=== PATIENT | female | born 1980 | race Caucasian/White ===

== ENCOUNTER → 2016-10-04 | Outpatient (CLI) | payer BC ==
[~2016-10-04] MED LIST: MULT-506 PO; PRENTAB26 PO
--- NOTE | 2016-10-05 12:59 | MAMMOGRAPHY REPORT ---
BILATERAL DIGITAL SCREENING MAMMOGRAM TOMOSYNTHESIS WITH CAD: 10/04/2016 CLINICAL HISTORY: Routine screening. Patient has no complaints. TECHNIQUE: Breast tomosynthesis in addition to standard 2D mammography was performed. Current study was also evaluated with a Computer Aided Detection (CAD) system. COMPARISON: Comparison is made to exams dated: 06/20/2013 mammogram - [facility] an d 12/27/2006. BREAST COMPOSITION: The tissue of both breasts is heterogeneously dense, which may obscure small ma sses. FINDINGS: No suspicious mass, architectural distortion or cluster of microcalcifications is seen. IMPRESSION: ACR BI-RADS CATEGORY 1: NEGATIVE There is no mammographic evidence of malignancy. A 3 year screening mammogram is recommended. The p atient will receive written notification of the results. Approximately 10% of breast cancers are not detected with mammography. A negative mammographic repor t should not delay biopsy if a clinically suggestive mass is present. Silvia Hull M.D. ay/penrad:10/04/2016 17:47:24 Systems Development Manager: Leila ARREOLA(R)(Daniele)(BD), [facility] letter sent: Normal 1/2 BI-RADS Code: ACR BI-RADS Category 1: Negative
== END | disposition home or self-care (01) ==
LOC: C.MAMM 12:09
PROVIDERS: ATTEND Obstetrics & Gynecology
DX: Z12.31 Encounter for screening mammogram for malignant neoplasm of breast (principal)

== ENCOUNTER 2016-12-25 13:51 | Emergency (ER) | payer BC ==
[~2016-12-25] VITALS: Ht 160 cm; Wt 67.6 kg
[~2016-12-25 13:51] MED LIST changes: -MULT-506 PO
[2016-12-25 13:56] VITALS: BP 126/87; PULSE 85; TEMP 36.9; O2SAT 96; Ht 160 cm; Wt 67.6 kg
[2016-12-25] MEDS ORDERED: RABIES VACCINE (IMOVAX) HUMAN DIPL CELL 2.5 INTER.UNIT/ML SYR IM. ONE (14:15)
--- NOTE | 2016-12-25 14:20 | EMERGENCY ROOM VISIT NOTE ---
History First contact with patient: 14:01 Chief Complaint: RABIES VACCINE Stated Complaint: BAT EXPOSURE History of Present Illness The patient is a 36 year old female who presents to the Emergency Room for a rabies prophylaxis immunization series. The patient and son were awakened this morning with a bat flying around in the room. The family was alerted by their barking dog. They were able to chased the bat out of the house. There was no known contact with the bat, but because the family was awakened with a bat in the room, animal control suggested that they come to the emergency department for further evaluation. 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 This was approximately 7-8 years ago. Review of Systems 6 system review was performed and was negative except for pertinent positives and negatives as indicated in history of present illness Past Medical/Surgical History Medical Problems: (1) Ovarian Cyst Nec/Nos Surgical Problems: (1) No history of previous surgery Family History Unremarkable Social History Smoking Status: Never Smoker Alcohol Use: occasionally Marital Status: Housing Status: lives with family Occupation Status: employed Current/Historical Medications Scheduled Multivit/Min/Iron/Fol Ac/Pren ( Vitamin), 1 TAB PO DAILY Allergies Coded Allergies: Tramadol (Verified Allergy, Intermediate, SHORTNESS OF BREATH, 06/22/14) Physical Exam Vital Signs Date Time Temp Pulse Resp B/P (MAP) Pulse Ox O2 Delivery O2 Flow Rate FiO2 12/25/16 13:56 36.9 85 16 126/87 96 Room Air Physical Exam CONSTITUTIONAL: Healthy and well nourished. HEENT: Normocephalic, atraumatic. Pupils equal, round and reactive. INTEGUMENTARY: No rash or other significant dermatologic conditions noted. NEUROLOGIC: No focal neurologic deficits noted. Medical Decision & Procedures ED Course Patient history and physical exam were performed. Nurse's notes were reviewed. Vital signs were reviewed and normal. The patient was administered Imovax IM. She will return on day 3 for her final Imovax injection. She was instructed to return sooner for any adverse reactions to the Imovax. The patient was happy with plan of care, and denied any pain at the time of discharge. Medical Decision Impression Primary Impression: Need for prophylactic vaccination against rabies Departure Information Dispostion Home / Self-Care Referrals No Doctor, Assigned Forms HOME CARE DOCUMENTATION FORM, IMPORTANT VISIT INFORMATION Patient Instructions My [facility] Additional Instructions Return on Monday for your final Imovax immunization
[2016-12-28] MEDS ORDERED: MULT-506 PO (14:19)
== END 2016-12-25 15:22 | disposition home or self-care (01) ==
LOC: C.EDB 13:53 → C.EDD 15:22
DX: Z20.3 Contact with and (suspected) exposure to rabies (principal); Z23 Encounter for immunization

== ENCOUNTER 2016-12-28 15:39 | Emergency (ER) | payer BC ==
[~2016-12-28] VITALS: Ht 160 cm; Wt 67.2 kg
[~2016-12-28 15:39] MED LIST changes: +MULT-506 PO; -PRENTAB26 PO
[2016-12-28 15:45] VITALS: BP 136/89; PULSE 79; TEMP 36.8; O2SAT 95; Ht 160 cm; Wt 67.2 kg
--- NOTE | 2016-12-28 15:55 | EMERGENCY ROOM VISIT NOTE ---
ED Visit Note First contact with patient: 15:47 CHIEF COMPLAINT: Rabies prophylaxis HISTORY OF PRESENT ILLNESS: This 36-year-old female patient presents to the emergency department ambulatory for their second and final rabies shot. The patient has already had the preexposure prophylaxis. The patient has not had any complications from the previous injections. They deny any other complaints. REVIEW OF SYSTEMS: A 6 system review of systems was completed with positives and pertinent negatives listed in the HPI. ALLERGIES: Tramadol MEDICATIONS: Unchanged from previous PMH: Unchanged from previous visit. PHYSICAL EXAM: Vital Signs: Reviewed Nurse's notes, vital signs stable. GENERAL : This is a 36-year-old female, in no acute distress, well-developed, well- nourished. HEAD: Atraumatic, without temporal or scalp tenderness. EYES: PERRLA, EOMI, no discharge or injection. SKIN: Normal. NEUROLOGICAL: Alert and cooperative. Sensory and motor functions grossly intact. EMERGENCY DEPARTMENT COURSE: I examined the patient. The patient was given Imovax 1ml IM. The patient was observed for 20 minutes with no reaction. The patient was discharged home in stable condition. DIAGNOSIS: Rabies prophylaxis DISCHARGE INSTRUCTIONS: Continue vaccination schedule as directed. Return for any complications. Current/Historical Medications Scheduled Multivitamin (Multivitamin), 1 TAB PO DAILY Allergies Coded Allergies: Tramadol (Verified Allergy, Intermediate, SHORTNESS OF BREATH, 12/25/16) Vital Signs Date Time Temp Pulse Resp B/P (MAP) Pulse Ox O2 Delivery O2 Flow Rate FiO2 12/28/16 15:45 36.8 79 18 136/89 95 Room Air Medications Administered Medications (Trade) Dose Ordered Sig/Rain Route Start Time Stop Time Status Last Admin Dose Admin Rabies Vaccine Human Diploid Cell (Imovax Rabies) 2.5 interunit ONCE ONCE IM. 12/28/16 16:00 12/28/16 16:01 DC 12/28/16 16:00 2.5 INTERUNIT Departure Information Impression Primary Impression: Need for rabies vaccination Dispostion Home / Self-Care Condition GOOD Referrals Zenon Montalvo M.D. (PCP) Patient Instructions My [facility] Additional Instructions Continue vaccination schedule as directed. Return for any complications.
[2016-12-28] MEDS ORDERED: RABIES VACCINE (IMOVAX) HUMAN DIPL CELL 2.5 INTER.UNIT/ML SYR IM. ONE (16:00)
== END 2016-12-28 16:29 | disposition home or self-care (01) ==
LOC: C.EDB 15:40 → C.EDD 16:29
DX: Z23 Encounter for immunization (principal); Z20.3 Contact with and (suspected) exposure to rabies

== ENCOUNTER 2022-12-08 12:00 | Inpatient (IN) ==
[2022-12-08] MEDS ORDERED: SODIUM CHLORIDE 0.9% 500 ML IV STA (12:12)
[2022-12-08] MEDS ORDERED: ONDANSETRON INJ 2 MG/ML 2 ML VIAL IV STA ×2 (12:12→14:41)
[2022-12-08 14:18] LABS: Albumin Globulin Ratio 1.8 (0.9-2); Albumin Level 4.9 gm/dl (3.4-5.0); BUN Creatinine Ratio 7.1 (10-20); Bilirubin,Total 0.6 mg/dl (0.2-1.0); Calcium 9.8 mg/dl (8.6-10.3); Creatinine Clr Calc Pharmacy 96.6 ml/min; Est GFR (Non-African American) 106.1 ml/min; Globulin 2.7 gm/dl (2.5-4.0); Potassium 4.1 mmol/L (3.5-5.1); Pregnancy Test, Serum Negative (Negative); Total Protein 7.6 gm/dl (6.0-8.3)
[2022-12-08] MEDS ORDERED: SODIUM CHLORIDE 0.9% 1000ML 2,000 ML IV ONE (14:36)
[2022-12-08] MEDS ORDERED: METOCLOPRAMIDE HCL INJ 5 MG/ML 2 ML VIAL IV STA (14:36)
--- NOTE | 2022-12-08 14:41 | Emergency Department Note ---
Impression & Plan SBO (small bowel obstruction), Abdominal pain ED Provider Note NAME: EPHRAIM DELEON AGE: 42 SEX: F : 1980 ARRIVES VIA: Walk-In INFORMANT: Patient ED PROVIDER(S): Stephen So DO CHIEF COMPLAINT: Abdominal pain HPI: Patient is a 42-year-old female with a past medical history with previous surgery to evaluate for endometriosis. They found nothing but when they went into her belly they did notice adhesions. This was when she was 18. She notes symptoms started on Monday. Has not been feeling well. Upset stomach. She went to her PCP as she started having pain periumbilically and epigastric. She had a CT performed which showed a small bowel obstruction. was negative. She denies any headache or change in vision. No chest pain or shortness of breath. No dysuria, urgency, or frequency. No other exacerbating or remitting factors. PAST MEDICAL HISTORY:See Below PAST SURGICAL HISTORY:See Below FAMILY HISTORY:See Below SOCIAL HISTORY:See Below HOME MEDICATIONS:See Below ALLERGIES:See Below VITALS:See Below PHYSICAL EXAMINATION: GENERAL: Sitting up in bed, alert, well appearing, well nourished, no distress, non-toxic EYE EXAM: normal conjunctiva. OROPHARYNX: mucous membranes are moist LUNGS: Clear to auscultation. Normal chest wall mechanics HEART: no murmurs, S1 normal and S2 normal ABDOMEN: abdomen soft, ttp periumbilically, normo-active bowel sounds, no ma sses, no rebound or guarding. BACK: Back is symmetrical on inspection and there is no deformity, no midline tenderness, no CVA tenderness. SKIN: no rashes and no bruising UPPER EXTREMITIES: upper extremities are grossly normal. LOWER EXTREMITIES: No pitting edema. NEURO EXAM: Normal sensorium, cranial nerves II-XII grossly intact, normal speech, no gross weakness of arms, no gross weakness of legs. MEDICAL DECISION MAKING: Patient is a 42-year-old female who presents ER for abdominal pain. IV was established blood work was obtained. External records reviewed which showed a bowel obstruction. Patient presents to the ER and labs show no significant leukocytosis or anemia. BMP with LFTs bilirubin lipase and hCG was negative. She was given IV fluids and IV morphine. Updated bedside. Discussed with hospitalist admitted for small bowel obstruction on CT. discussed with the hospitalist for further evaluation management and treatment. Also discussed with care managers for admission and further work-up Triage Nursing notes reviewed. Limited review of prior medical records performed Vital Signs: reviewed and remarkable for no significant abnormalities Differential diagnosis: Differential diagnoses includes but is not limited to gastritis, peptic ulcer disease, GERD, gallbladder disease, pancreatitis, small bowel obstruction, appendicitis, diverticulitis, hernia, urinary tract infection, torsion, [/ectopic (if female)], perforation, trauma, infectious. ER treatment provided: See below Diagnostics interpreted by me include EKG and cardiac monitoring as listed below: -Cardiac Monitoring: An order was placed for continuous cardiac monitoring. The monitor shows a rate of 70 with sinus rhythm. -ECG: none -Laboratory studies:Interpreted by me as stated above in MDM and shown below. 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 Surgical History 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 S/P dilation and curettage S/P laparoscopy S/P tonsillectomy S/P tooth extraction wisdom teeth Family History Grandmother (Maternal) Heart disease Breast cancer Thyroid disorder Grandfather (Maternal) Diabetes Family/Other Family history of malignant hyperthermia First cousin Other Abdominal migraine Gallbladder disease History of IVP Hypertension Osteoporosis Pure hypercholesterolemia Varicella Social History Smoking Status: Former smoker Second Hand Exposure: No; Do You Dip or Chew Tobacco: No; Hx Alcohol Use: No Hx Substance Use: No Preferred Language: German Communication Ability: Effective Head Of Precision Targeting Required: No Beliefs That Will Affect Care: None Current Living Situation: Family Current Living Situation Comment: and 2 kids Feels Safe at Home: Yes Assistive Devices: Contacts and Glasses Allergies Allergies Allergy/AdvReac Type Severity Reaction Status Date / Time tramadol Allergy Severe SHORTNESS Verified 12/08/22 16:07 OF BREATH Home Meds Home Medications Medication Instructions Recorded Confirmed levonorgestrel 21 mcg/24 hours (8 20 mcg intrauterine DAILY 02/13/19 12/08/22 yrs) 52 mg intrauterine device fluticasone propionate 50 2 spray intranasal BID PRN Nasal 12/08/22 12/08/22 mcg/actuation nasal Congestion spray,suspension sumatriptan succinate 50 mg tablet 0 mg PO .COMPLEX 12/08/22 12/08/22 (Imitrex) Previous Rx's Medication Instructions Recorded norethindrone (contraceptive) 0.35 0.35 mg PO DAILY #28 tabs 11/17/22 mg tablet (Bina) Results & Data (ED) Vital Signs Vital Signs - 24 hr 12/08/22 12:05 12/08/22 14:34 12/08/22 15:00 Temperature 36.5 C Temperature Source Temporal Artery Scan Pulse Rate 77 72 Pulse Rate [Apical] 64 Pulse Rhythm Regular Pulse Strength Normal Respiratory Rate 18 14 Respiratory Effort / Characteristics Non-Labored Spontaneous Respiratory Depth Normal Respiratory Pattern Regular Blood Pressure 151/92 H Blood Pressure [Right Arm] 147/89 H Blood Pressure Mean 111 Blood Pressure Mean [Right Arm] 108 Blood Pressure Position Sitting Pulse Oximetry 100 100 Oxygen Delivery Method Room Air Room Air Sepsis Recent Fever Within 48 Hours No Sepsis New/Unexplained Change in Mental Status No Sepsis Action Taken by Nursing No Action Required Laboratory Data 12/08/22 14:33 12/08/22 13:34 Lab Results 12/08/22 12/08/22 12/08/22 Range/Units 13:34 13:34 13:34 WBC Cancelled RBC Cancelled Hgb Cancelled Hct Cancelled MCV Cancelled MCH Cancelled MCHC Cancelled RDW Std Deviation Cancelled RDW Coeff of Rosey Cancelled Plt Count Cancelled MPV Cancelled Immature Gran % (Auto) Cancelled Neut % (Auto) Cancelled Lymph % (Auto) Cancelled [place] % (Auto) Cancelled Eos % (Auto) Cancelled Baso % (Auto) Cancelled Neut # (Auto) Cancelled Lymph # (Auto) Cancelled [place] # (Auto) Cancelled Eos # (Auto) Cancelled Baso # (Auto) Cancelled Immature Gran # (Auto) Cancelled Absolute Nucleated RBC Cancelled Nucleated RBC % (auto) Cancelled Neutrophils % (Manual) Cancelled Band Neutrophils % Cancelled Lymphocytes % (Manual) Cancelled Prolymphocyte % Cancelled Reactive Lymphs % (Man) Cancelled Monocytes % (Manual) Cancelled Eosinophils % (Manual) Cancelled Basophils % (Manual) Cancelled Metamyelocytes % (Man) Cancelled Myelocytes % (Man) Cancelled Promyelocytes % (Man) Cancelled Blast Cells % (Manual) Cancelled Plasma Cell % (Manual) Cancelled Other Cells % Cancelled Nucleated RBC % Cancelled Neutrophils # (Manual) Cancelled Band Neutrophils # Cancelled Total Absolute Neuts Cancelled Lymphocytes # (Manual) Cancelled Prolymphocyte # Cancelled Reactive Lymphs # Cancelled Total Abs Lymphocytes Cancelled Monocytes # (Manual) Cancelled Eosinophils # (Manual) Cancelled Basophils # (Manual) Cancelled Metamyelocytes # (Man) Cancelled Myelocytes # (Manual) Cancelled Promyelocytes # (Man) Cancelled Blast Cells # (Man) Cancelled Plasma Cell # (Manual) Cancelled Other Cells # Cancelled Nucleated RBCs # (Man) Cancelled Hypersegmented Neuts Cancelled Hyposegmented Neuts Cancelled Hypogranular Neuts Cancelled Large Granular Lymphs Cancelled # Lrg Granular Lymphs Cancelled Hairy Cells Cancelled Smudge Cells Cancelled Toxic Granulation Cancelled Toxic Vacuolation Cancelled Dohle Bodies Cancelled Kelley Rods Cancelled Platelet Estimate Cancelled Hypogranular Platelets Cancelled Giant Platelets Cancelled Platelet Satelliting Cancelled RBC Morphology Cancelled Polychromasia Cancelled Hypochromasia Cancelled Poikilocytosis Cancelled Basophilic Stippling Cancelled Anisocytosis Cancelled Microcytosis Cancelled Macrocytosis Cancelled Spherocytes Cancelled Pappenheimer Bodies Cancelled Sickle Cells Cancelled Target Cells Cancelled Tear Drop Cells Cancelled Ovalocytes Cancelled Stomatocytes Cancelled [place] Bodies Cancelled Echinocytes Cancelled Acanthocytes (Spur) Cancelled Rouleaux Cancelled RBC Agglutinates Cancelled Schistocytes Cancelled Sezary Cell Cancelled Sodium 138 (136-145) mmol/L Potassium 4.1 (3.5-5.1) mmol/L Chloride 106 (98-107) mmol/L Carbon Dioxide 26 (21-32) mmol/L Anion Gap 6 (3-11) BUN 5 L (6-23) mg/dl Creatinine 0.70 (0.6-1.2) mg/dl Est Cr Clr Drug Dosing 96.6 ml/min Est GFR ( Amer) 123.0 ml/min Est GFR (Non-Af Amer) 106.1 ml/min BUN/Creatinine Ratio 7.1 L (10-20) Glucose 88 (70-99(Fasting)) mg/dl Calcium 9.8 (8.6-10.3) mg/dl Total Bilirubin 0.6 (0.2-1.0) mg/dl AST 17 (13-39) U/L ALT 16 (7-52) U/L Alkaline Phosphatase 56 (34-104) U/L Total Protein 7.6 (6.0-8.3) gm/dl Albumin 4.9 (3.4-5.0) gm/dl Globulin 2.7 (2.5-4.0) gm/dl Albumin/Globulin Ratio 1.8 (0.9-2) Lipase 20 (11-82) U/L HCG, Qual Negative (Negative) Blood Parasites ID Cancelled 12/08/22 Range/Units 14:33 WBC 6.52 RBC 4.81 Hgb 14.4 Hct 42.8 MCV 89.0 MCH 29.9 MCHC 33.6 RDW Std Deviation 40.5 RDW Coeff of Rosey 12.5 Plt Count 213 MPV 11.3 Immature Gran % (Auto) 0.2 Neut % (Auto) 64.4 Lymph % (Auto) 28.5 [place] % (Auto) 6.1 Eos % (Auto) 0.5 Baso % (Auto) 0.3 Neut # (Auto) 4.20 Lymph # (Auto) 1.86 [place] # (Auto) 0.40 Eos # (Auto) 0.03 Baso # (Auto) 0.02 Immature Gran # (Auto) 0.01 Absolute Nucleated RBC Nucleated RBC % (auto) Neutrophils % (Manual) Band Neutrophils % Lymphocytes % (Manual) Prolymphocyte % Reactive Lymphs % (Man) Monocytes % (Manual) Eosinophils % (Manual) Basophils % (Manual) Metamyelocytes % (Man) Myelocytes % (Man) Promyelocytes % (Man) Blast Cells % (Manual) Plasma Cell % (Manual) Other Cells % Nucleated RBC % Neutrophils # (Manual) Band Neutrophils # Total Absolute Neuts Lymphocytes # (Manual) Prolymphocyte # Reactive Lymphs # Total Abs Lymphocytes Monocytes # (Manual) Eosinophils # (Manual) Basophils # (Manual) Metamyelocytes # (Man) Myelocytes # (Manual) Promyelocytes # (Man) Blast Cells # (Man) Plasma Cell # (Manual) Other Cells # Nucleated RBCs # (Man) Hypersegmented Neuts Hyposegmented Neuts Hypogranular Neuts Large Granular Lymphs # Lrg Granular Lymphs Hairy Cells Smudge Cells Toxic Granulation Toxic Vacuolation Dohle Bodies Kelley Rods Platelet Estimate Hypogranular Platelets Giant Platelets Platelet Satelliting RBC Morphology Polychromasia Hypochromasia Poikilocytosis Basophilic Stippling Anisocytosis Microcytosis Macrocytosis Spherocytes Pappenheimer Bodies Sickle Cells Target Cells Tear Drop Cells Ovalocytes Stomatocytes [place] Bodies Echinocytes Acanthocytes (Spur) Rouleaux RBC Agglutinates Schistocytes Sezary Cell Sodium (136-145) mmol/L Potassium (3.5-5.1) mmol/L Chloride (98-107) mmol/L Carbon Dioxide (21-32) mmol/L Anion Gap (3-11) BUN (6-23) mg/dl Creatinine (0.6-1.2) mg/dl Est Cr Clr Drug Dosing ml/min Est GFR ( Amer) ml/min Est GFR (Non-Af Amer) ml/min BUN/Creatinine Ratio (10-20) Glucose (70-99(Fasting)) mg/dl Calcium (8.6-10.3) mg/dl Total Bilirubin (0.2-1.0) mg/dl AST (13-39) U/L ALT (7-52) U/L Alkaline Phosphatase (34-104) U/L Total Protein (6.0-8.3) gm/dl Albumin (3.4-5.0) gm/dl Globulin (2.5-4.0) gm/dl Albumin/Globulin Ratio (0.9-2) Lipase (11-82) U/L HCG, Qual (Negative) Blood Parasites ID Administered Medications Discontinued Medications Sodium Chloride (Nss) 500 mls @ 999 mls/hr IV .Q31M STA Stop: 12/08/22 12:42 Last Infusion: 12/08/22 15:26 Dose: 0 mls/hr Documented By: Admin: 12/08/22 14:30 Dose: 999 mls/hr Documented By: HS Sodium Chloride (Nss 1000ml) 2,000 mls @ 999 mls/hr IV .Q2H1M ONE Stop: 12/08/22 16:36 Last Admin: 12/08/22 15:26 Dose: 999 mls/hr Documented By: ROLANDO Metoclopramide HCl (Metoclopramide Hcl Inj 5 Mg/Ml 2 Ml Vial) 10 mg IV NOW STA Stop: 12/08/22 14:37 Last Admin: 12/08/22 14:52 Dose: Not Given Documented By: MADONNA Ondansetron HCl (Ondansetron Inj 2 Mg/Ml 2 Ml Vial) 4 mg IV NOW STA Stop: 12/08/22 12:13 Last Admin: 12/08/22 13:31 Dose: 4 mg Documented By: SE Ondansetron HCl (Ondansetron Inj 2 Mg/Ml 2 Ml Vial) 4 mg IV NOW STA Stop: 12/08/22 14:42 Last Admin: 12/08/22 14:52 Dose: 4 mg Documented By: MADONNA Discharge Plan Visit Data Chief Complaint: GI Assessment Stated Complaint: BOWEL OBSTRUCTION ED Provider: Stephen So Discharge Problem: SBO (small bowel obstruction), Abdominal pain Patient Disposition: Admitted As Inpatient Discharge Instructions Interventions: ED Discharge Assessment Last Done: 12/08/22 17:04
[2022-12-08 14:49] LABS: Basophils # (auto) 0.02 K/uL (0-0.2); Basophils % (auto) 0.3 %; Eosinophils # (auto) 0.03 K/uL (0-0.50); Eosinophils % (auto) 0.5 %; Hematocrit (blood only) 42.8 % (37.0-47.0); Hemoglobin 14.4 g/dl (12.0-16.0); Immature Granulocytes # (auto) 0.01 K/uL (0.01-0.20); Immature Granulocytes % (auto) 0.2 %; Lymphocytes # (auto) 1.86 K/uL (1.2-3.4); Lymphocytes % (auto) 28.5 %; Mean Corpuscular Hemoglobin 29.9 pg (25.0-34.0); Mean Corpuscular Hgb Conc 33.6 g/dL (32.0-36.0); Mean Platelet Volume 11.3 fL (9.4-12.4); Monocytes % (auto) 6.1 %; Neutrophils % (auto) 64.4 %; Platelet Count 213 K/uL (130-400); RDW Coefficient of Variation 12.5 % (11.5-14.5); RDW Standard Deviation 40.5 fL (36.4-46.3); Red Blood Count 4.81 M/uL (4.20-5.40); White Blood Count 6.52 K/ul (4.8-10.8)
--- NOTE | 2022-12-08 15:50 | History & Physical Report ---
Date of Service December 08, 2022 Assessment & Plan (1) SBO (small bowel obstruction): Plan: NPO, IV fluids Ondansetron for nausea Acetaminophen 1st line, morphine 2nd line for pain Consult surgery Plan VTE Prophylaxis - low risk Diet - NPO Disposition - admit to med/surg Admission and Anticipated Discharge Date Admission Date: December 08, 2022 History of Present Illness Chief Complaint: Abdominal pain, nausea Primary Care Provider: Carmen Miller DO Shayy Fernandez is a 42 year old female who presents to the ER with abdominal pain and nausea. Initial symptom of nausea started 2 days ago with nausea, however she was able to eat and drink normally throughout the day. Last night however she kept waking up with progressively worsening waves of pain. Severity at worst 7/10. Each wave lasting for around 5 minutes. Characteristic as dull ache. She had a normal bowel movement this morning without melena or hematochezia. No prior episodes of small bowel obstruction although she had an exporative laparoscopy aged 18 for possible endometriosis but only adhesions were seen. Allergies Allergy/AdvReac Type Severity Reaction Status Date / Time tramadol Allergy Severe SHORTNESS Verified 12/08/22 16:07 OF BREATH Home Medications Medication Instructions Recorded Confirmed Type levonorgestrel 21 mcg/24 hours (8 20 mcg intrauterine DAILY 02/13/19 12/08/22 History yrs) 52 mg intrauterine device norethindrone (contraceptive) 0.35 0.35 mg PO DAILY #28 tabs 11/17/22 12/08/22 Rx mg tablet (Bina) fluticasone propionate 50 2 spray intranasal BID PRN Nasal 12/08/22 12/08/22 History mcg/actuation nasal Congestion spray,suspension sumatriptan succinate 50 mg tablet 0 mg PO .COMPLEX 12/08/22 12/08/22 History (Imitrex) Past Med/Surg History Medical History Encounter for IUD removal and reinsertion H/O varicella History of COVID-19 10/2021 - congestion, cough - resolved Missed Mitral 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 Surgical History 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 S/P dilation and curettage S/P laparoscopy S/P tonsillectomy S/P tooth extraction wisdom teeth Family History Grandmother (Maternal) Heart disease Breast cancer Thyroid disorder Grandfather (Maternal) Diabetes Family/Other Family history of malignant hyperthermia First cousin Other Abdominal migraine Gallbladder disease History of IVP Hypertension Osteoporosis Pure hypercholesterolemia Varicella Social History Smoking Status: Never smoker Second Hand Exposure: No; Do You Dip or Chew Tobacco: No; Tobacco Cessation Education Requested by Patient: No Hx Alcohol Use: No Hx Substance Use: No Preferred Language: Mongolian Communication Ability: Effective 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: No Beliefs That Will Affect Care: None Current Living Situation: Family Current Living Situation Comment: and two kids Feels Safe at Home: Yes Safety Concerns: Feels Safe At This Time Assistive Devices: Glasses Review of Systems Review of Systems: All systems reviewed & are unremarkable except as noted in HPI & below Physical Exam Constitutional: WD/WN, vitals as above ENMT: external ear and nose normal, oropharynx normal Respiratory: normal respiratory effort, lungs clear to auscultation Cardiovascular: RRR, no murmur, no edema Gastrointestinal (Abdomen): Inspection/Auscultation: abdomen normal to inspection; abdomen not distended Percussion/Palpation: + abdomen tender (left side of abdomen) and abdomen soft; no guarding and abdomen not rigid Musculoskeletal: no cyanosis or clubbing, extremities motor strength 5/5 Skin: no rashes, warm and dry Neurologic: moves all extremities and awake; not confused Psychiatric: A+Ox3, euthymic affect Results & Data Results & Data Vital Signs (Past 12 Hours) Vital Signs Temp Pulse Pulse Resp BP BP Pulse Ox 12/08/22 15:00 64 14 147/89 H 100 12/08/22 14:34 72 12/08/22 12:05 36.5 C 77 18 151/92 H 100 O2 Del Method 12/08/22 15:00 Room Air 12/08/22 14:34 12/08/22 12:05 Room Air Laboratory Results Abnormal lab results 12/08/22 Range/Units 13:34 BUN 5 L (6-23) mg/dl BUN/Creatinine Ratio 7.1 L (10-20) Diagnostic Findings ABDOMEN AND PELVIS CT WITHOUT CONTRAST CT DOSE: 847.09 mGy.cm HISTORY: Mid abdominal pain. Cramping. ABDOMINAL PAIN ASSESS GALLBLADDER/APPENDIX TECHNIQUE: Multiaxial CT images of the abdomen and pelvis were performed without contrast. A dose lowering technique was utilized adhering to the principles of ALARA. COMPARISON STUDY: Abdomen and pelvis CT 11/06/2017. FINDINGS: The lung bases are clear. No pneumoperitoneum. No pneumatosis. No acute fractures identified. The unenhanced liver, gallbladder, spleen, pancreas, and adrenal glands are unremarkable. A 3 mm fat-containing lesion within the right kidney remains stable. This is consistent with an angiomyolipoma. There are few punctate bilateral renal calculi measuring up to 3 mm. No ureteral calculi. No hydronephrosis. No retroperitoneal or mesenteric lymphadenopathy. No pelvic lymphadenopathy. Trace pelvic free fluid. The bladder is unremarkable. An intrauterine device appears in good position. The ovaries are within normal limits. Suboptimal evaluation for bowel pathology due to the lack of intravenous and oral contrast. The stomach is mildly distended and fluid-filled. The proximal jejunal loops are also distended and fluid-filled within the midabdomen with mild adjacent fat stranding. These measure up to 3 cm in diameter. Possible transition point within the left mid abdomen on image 176. Therefore, these findings are consistent with a small bowel obstruction. Normal appendix. IMPRESSION: 1. Dilated fluid-filled loops of proximal jejunum with a possible transition point within the left mid abdomen. Therefore, these findings are consistent with a small bowel obstruction. The exact etiology is not clearly identified. 2. Normal appendix. 3. Bilateral nephrolithiasis. No ureteral stones. No hydronephrosis. Medications Administered ER Medications Given: Ondansetron 4mg IV NSS 2.5L bolus Ondansetron 4mg IV Code Status & VTE Plan Code Status Full VTE Prophylaxis Plan VTE Prophylaxis will be ordered: No PG Care Time/CCT Total # of Minutes Spent Total Time Spent with Patient: Total time spent is greater than 50% in coordination of care (as documented) at patient's floor/unit and/or counseling patient: Coding Level of Care Code 83474 INT INP/OBS CARE 2/55MIN Diagnoses SBO (small bowel obstruction) K56.609
--- NOTE | 2022-12-08 15:52 | Surgery Consultation ---
Date of Consultation December 08, 2022 Assessment & Plan (1) SBO (small bowel obstruction): 42 year-old female with history of diagnostic laparoscopy at 18 years of age presented to ED with increasing upper abdominal pain with associated nausea and bloating. Outpatient ct scan showing SBO with dilated SB loops. No leukocytosis, afebrile, hemodynamically stable, abdomen is soft nondistended, tenderness without rigidity, guarding, rebound or peritonitis. Plan: no emergent surgical intervention required, would recommend conservative management: NPO for bowel rest, iv fluids, pain management and antiemetics as needed. If nausea is uncontrolled or any vomiting would recommend NGT for decompression. KUB in am repeat am labs while npo encourage ambulation Dr. Jay has seen patient and agrees with above. History of Present Illness Reason for Consultation: SBO Requesting Physician: Dr. Stephen So Attending Physician: Dr. Stephen So History of Present Illness Shayy is a 42 year-old female with no significant medical history presented to emergency department after obtaining outpatient CT scan of abdomen/pelvis for upper mid abdominal pain with associated nausea that started on Monday. Became more severe last evening into this morning. She felt somewhat bloated. No vomiting but states nausea was severe with the severe waves of pain. States it was similar to labor contractions that would come and go with severe discomfort. Passed gas and had normal bowel movement this morning. NO prior history of similar abdominal pain. History of diagnostic laparoscopy when she was 18 years old for possible endometriosis however nothing found. Was told that she did have adhesions at the time. No other abdominal surgeries. Labs showed no leukocytosis. CT scan of abdomen and pelvis without contrast showing dilated sb loops measuring up to 3 cm with possible transition point in left mid upper abdomen. She currently states pain is not as severe and better controlled than this morning. No vomiting since being in the ER. 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 S/P dilation and curettage S/P laparoscopy S/P tonsillectomy S/P tooth extraction wisdom teeth Family History Grandmother (Maternal) Heart disease Breast cancer Thyroid disorder Grandfather (Maternal) Diabetes Family/Other Family history of malignant hyperthermia First cousin Other Abdominal migraine Gallbladder disease History of IVP Hypertension Osteoporosis Pure hypercholesterolemia Varicella Social History Smoking Status: Former smoker Second Hand Exposure: No; Do You Dip or Chew Tobacco: No; Hx Alcohol Use: No Hx Substance Use: No Preferred Language: Romanian Communication Ability: Effective Acoustical Tile Patternmaker Required: No Beliefs That Will Affect Care: None Current Living Situation: Family Current Living Situation Comment: and 2 kids Feels Safe at Home: Yes Assistive Devices: Contacts and Glasses Physical Exam Constitutional: WD/WN, vitals as above cooperative and comfortable; no acute distress, not ill appearing and not diaphoretic Respiratory: normal respiratory effort; no respiratory distress Gastrointestinal (Abdomen): Inspection/Auscultation: abdomen normal to ins pection and + abdominal surgical scar (laparoscopic scars); abdomen not distended Percussion/Palpation: + abdomen tender (mid lower and upper abdomen) and abdomen soft; no guarding, abdomen not rigid and abdomen not firm Skin: no rashes, warm and dry no jaundice Psychiatric: A+Ox3, euthymic affect Results & Data Vital Signs (Past 12 Hours) Vital Signs Temp Pulse Pulse Resp BP BP Pulse Ox 12/08/22 15:00 64 14 147/89 H 100 12/08/22 14:34 72 12/08/22 12:05 36.5 C 77 18 151/92 H 100 O2 Del Method 12/08/22 15:00 Room Air 12/08/22 14:34 12/08/22 12:05 Room Air Laboratory Results 12/08/22 12/08/2212/08/23 Range/Units 14:33 13:34 13:34 WBC 6.52 RBC 4.81 Hgb 14.4 Hct 42.8 MCV 89.0 MCH 29.9 MCHC 33.6 RDW Std Deviation 40.5 RDW Coeff of Rosey 12.5 Plt Count 213 MPV 11.3 Immature Gran % (Auto) 0.2 Neut % (Auto) 64.4 Lymph % (Auto) 28.5 [place] % (Auto) 6.1 Eos % (Auto) 0.5 Baso % (Auto) 0.3 Neut # (Auto) 4.20 Lymph # (Auto) 1.86 [place] # (Auto) 0.40 Eos # (Auto) 0.03 Baso # (Auto) 0.02 Immature Gran # (Auto) 0.01 Absolute Nucleated RBC Nucleated RBC % (auto) Neutrophils % (Manual) Band Neutrophils % Lymphocytes % (Manual) Prolymphocyte % Reactive Lymphs % (Man) Monocytes % (Manual) Eosinophils % (Manual) Basophils % (Manual) Metamyelocytes % (Man) Myelocytes % (Man) Promyelocytes % (Man) Blast Cells % (Manual) Plasma Cell % (Manual) Other Cells % Nucleated RBC % Neutrophils # (Manual) Band Neutrophils # Total Absolute Neuts Lymphocytes # (Manual) Prolymphocyte # Reactive Lymphs # Total Abs Lymphocytes Monocytes # (Manual) Eosinophils # (Manual) Basophils # (Manual) Metamyelocytes # (Man) Myelocytes # (Manual) Promyelocytes # (Man) Blast Cells # (Man) Plasma Cell # (Manual) Other Cells # Nucleated RBCs # (Man) Hypersegmented Neuts Hyposegmented Neuts Hypogranular Neuts Large Granular Lymphs # Lrg Granular Lymphs Hairy Cells Smudge Cells Toxic Granulation Toxic Vacuolation Dohle Bodies Kelley Rods Platelet Estimate Hypogranular Platelets Giant Platelets Platelet Satelliting RBC Morphology Polychromasia Hypochromasia Poikilocytosis Basophilic Stippling Anisocytosis Microcytosis Macrocytosis Spherocytes Pappenheimer Bodies Sickle Cells Target Cells Tear Drop Cells Ovalocytes Stomatocytes [place]-Mckenzie Bodies Echinocytes Acanthocytes (Spur) Rouleaux RBC Agglutinates Schistocytes Sezary Cell Sodium 138 (136-145) mmol/L Potassium 4.1 (3.5-5.1) mmol/L Chloride 106 (98-107) mmol/L Carbon Dioxide 26 (21-32) mmol/L Anion Gap 6 (3-11) BUN 5 L (6-23) mg/dl Creatinine 0.70 (0.6-1.2) mg/dl Est Cr Clr Drug Dosing 96.6 ml/min Est GFR ( Amer) 123.0 ml/min Est GFR (Non-Af Amer) 106.1 ml/min BUN/Creatinine Ratio 7.1 L (10-20) Glucose 88 (70-99(Fasting)) mg/dl Calcium 9.8 (8.6-10.3) mg/dl Total Bilirubin 0.6 (0.2-1.0) mg/dl AST 17 (13-39) U/L ALT 16 (7-52) U/L Alkaline Phosphatase 56 (34-104) U/L Total Protein 7.6 (6.0-8.3) gm/dl Albumin 4.9 (3.4-5.0) gm/dl Globulin 2.7 (2.5-4.0) gm/dl Albumin/Globulin Ratio 1.8 (0.9-2) Lipase 20 (11-82) U/L HCG, Qual Negative (Negative) Blood Parasites ID 12/08/22 Range/Units 13:34 WBC Cancelled RBC Cancelled Hgb Cancelled Hct Cancelled MCV Cancelled MCH Cancelled MCHC Cancelled RDW Std Deviation Cancelled RDW Coeff of Rosey Cancelled Plt Count Cancelled MPV Cancelled Immature Gran % (Auto) Cancelled Neut % (Auto) Cancelled Lymph % (Auto) Cancelled [place] % (Auto) Cancelled Eos % (Auto) Cancelled Baso % (Auto) Cancelled Neut # (Auto) Cancelled Lymph # (Auto) Cancelled [place] # (Auto) Cancelled Eos # (Auto) Cancelled Baso # (Auto) Cancelled Immature Gran # (Auto) Cancelled Absolute Nucleated RBC Cancelled Nucleated RBC % (auto) Cancelled Neutrophils % (Manual) Cancelled Band Neutrophils % Cancelled Lymphocytes % (Manual) Cancelled Prolymphocyte % Cancelled Reactive Lymphs % (Man) Cancelled Monocytes % (Manual) Cancelled Eosinophils % (Manual) Cancelled Basophils % (Manual) Cancelled Metamyelocytes % (Man) Cancelled Myelocytes % (Man) Cancelled Promyelocytes % (Man) Cancelled Blast Cells % (Manual) Cancelled Plasma Cell % (Manual) Cancelled Other Cells % Cancelled Nucleated RBC % Cancelled Neutrophils # (Manual) Cancelled Band Neutrophils # Cancelled Total Absolute Neuts Cancelled Lymphocytes # (Manual) Cancelled Prolymphocyte # Cancelled Reactive Lymphs # Cancelled Total Abs Lymphocytes Cancelled Monocytes # (Manual) Cancelled Eosinophils # (Manual) Cancelled Basophils # (Manual) Cancelled Metamyelocytes # (Man) Cancelled Myelocytes # (Manual) Cancelled Promyelocytes # (Man) Cancelled Blast Cells # (Man) Cancelled Plasma Cell # (Manual) Cancelled Other Cells # Cancelled Nucleated RBCs # (Man) Cancelled Hypersegmented Neuts Cancelled Hyposegmented Neuts Cancelled Hypogranular Neuts Cancelled Large Granular Lymphs Cancelled # Lrg Granular Lymphs Cancelled Hairy Cells Cancelled Smudge Cells Cancelled Toxic Granulation Cancelled Toxic Vacuolation Cancelled Dohle Bodies Cancelled Kelley Rods Cancelled Platelet Estimate Cancelled Hypogranular Platelets Cancelled Giant Platelets Cancelled Platelet Satelliting Cancelled RBC Morphology Cancelled Polychromasia Cancelled Hypochromasia Cancelled Poikilocytosis Cancelled Basophilic Stippling Cancelled Anisocytosis Cancelled Microcytosis Cancelled Macrocytosis Cancelled Spherocytes Cancelled Pappenheimer Bodies Cancelled Sickle Cells Cancelled Target Cells Cancelled Tear Drop Cells Cancelled Ovalocytes Cancelled Stomatocytes Cancelled [place]-Mckenzie Bodies Cancelled Echinocytes Cancelled Acanthocytes (Spur) Cancelled Rouleaux Cancelled RBC Agglutinates Cancelled Schistocytes Cancelled Sezary Cell Cancelled Sodium (136-145) mmol/L Potassium (3.5-5.1) mmol/L Chloride (98-107) mmol/L Carbon Dioxide (21-32) mmol/L Anion Gap (3-11) BUN (6-23) mg/dl Creatinine (0.6-1.2) mg/dl Est Cr Clr Drug Dosing ml/min Est GFR ( Amer) ml/min Est GFR (Non-Af Amer) ml/min BUN/Creatinine Ratio (10-20) Glucose (70-99(Fasting)) mg/dl Calcium (8.6-10.3) mg/dl Total Bilirubin (0.2-1.0) mg/dl AST (13-39) U/L ALT (7-52) U/L Alkaline Phosphatase (34-104) U/L Total Protein (6.0-8.3) gm/dl Albumin (3.4-5.0) gm/dl Globulin (2.5-4.0) gm/dl Albumin/Globulin Ratio (0.9-2) Lipase (11-82) U/L HCG, Qual (Negative) Blood Parasites ID Cancelled Diagnostic Findings ABDOMEN AND PELVIS CT WITHOUT CONTRAST CT DOSE: 847.09 mGy.cm HISTORY: Mid abdominal pain. Cramping. ABDOMINAL PAIN ASSESS GALLBLADDER/APPENDIX TECHNIQUE: Multiaxial CT images of the abdomen and pelvis were performed without contrast. A dose lowering technique was utilized adhering to the principles of ALARA. COMPARISON STUDY: Abdomen and pelvis CT 11/06/2017. FINDINGS: The lung bases are clear. No pneumoperitoneum. No pneumatosis. No acute fractures identified. The unenhanced liver, gallbladder, spleen, pancreas, and adrenal glands are unremarkable. A 3 mm fat-containing lesion within the right kidney remains stable. This is consistent with an angiomyolipoma. There are few punctate bilateral renal calculi measuring up to 3 mm. No ureteral calculi. No hydronephrosis. No retroperitoneal or mesenteric lymphadenopathy. No pelvic lymphadenopathy. Trace pelvic free fluid. The bladder is unremarkable. An intrauterine device appears in good position. The ovaries are within normal limits. Suboptimal evaluation for bowel pathology due to the lack of intravenous and oral contrast. The stomach is mildly distended and fluid-filled. The proximal jejunal loops are also distended and fluid-filled within the midabdomen with mild adjacent fat stranding. These measure up to 3 cm in diameter. Possible transition point within the left mid abdomen on image 176. Therefore, these findings are consistent with a small bowel obstruction. Normal appendix. IMPRESSION: 1. Dilated fluid-filled loops of proximal jejunum with a possible transition point within the left mid abdomen. Therefore, these findings are consistent with a small bowel obstruction. The exact etiology is not clearly identified. 2. Normal appendix. 3. Bilateral nephrolithiasis. No ureteral stones. No hydronephrosis.
[2022-12-08] MEDS ORDERED: ONDANSETRON INJ 2 MG/ML 2 ML VIAL IV PRN (19:18)
[2022-12-08] MEDS ORDERED: MoRPHine SULFATE 2 MG/ML CARP IV PRN (19:18)
[2022-12-08] MEDS ORDERED: MoRPHine SULFATE 4 MG/ML 1 ML CARP\\VIAL IV PRN (19:18)
[2022-12-08] MEDS: LACTATED RINGER'S 1,000 ML IV SCH (20:18)
[2022-12-08] MEDS: ACETAMINOPHEN 1,000 MG/100 ML VIAL IV PRN (20:26)
[2022-12-09] MEDS: LACTATED RINGER'S 1,000 ML IV SCH ×3 (04:44→21:04)
[2022-12-09] MEDS: ACETAMINOPHEN 1,000 MG/100 ML VIAL IV PRN (06:50)
--- NOTE | 2022-12-09 11:46 | XRay Report ---
KUB HISTORY: Mid abdominal pain. Evaluate small bowel obstruction. COMPARISON: None. FINDINGS: A few borderline dilated gas-filled loops of small bowel within the midabdomen. These measu re up to 3.3 cm in diameter. This has slightly improved. Gas and stool again noted within the nondist ended colon. The lung bases are clear. An atrial device is seen within the mid pelvis. Punctate bila teral renal calculi again noted. No pneumoperitoneum or pneumatosis. IMPRESSION: 1. Slight improvement in the suspected small bowel obstruction. 2. Bilateral nephrolithiasis again noted. ACT 112: Negative or not required by law. Electronically signed by: Juan Marion M.D. 12/09/2022 11:44 AM
[2022-12-09] MEDS ORDERED: POLYETHYLENE (MIRALAX) 17 GM PACK PO ONE (11:59)
--- NOTE | 2022-12-09 12:03 | Surgery Progress Note ---
Date of Service December 09, 2022 Assessment & Plan (1) SBO (small bowel obstruction): Plan: 42 year-old female with history of diagnostic laparoscopy at 18 years of age presented to ED with increasing upper abdominal pain with associated nausea and bloating. Outpatient ct scan showing SBO with dilated SB loops. No leukocytosis, afebrile, hemodynamically stable, abdomen is soft nondistended, tenderness without rigidity, guarding, rebound or peritonitis. 12/09/2022: pain and nausea still present but improved passing some flatus after ambulating this morning abdomen is soft nondistended KUB showing formed stool in Right colon, mild dilated sb loop in RUQ per my read, air in colon Plan: no emergent surgical intervention required, would recommend conservative management: NPO for bowel rest, iv fluids, pain management and antiemetics as needed. Can have ice chips Miralax one time dose now encourage ambulation Dr. Jay has seen patient and agrees with above. Admission and Anticipated Discharge Date Admission Date: December 08, 2022 Subjective feeling better this am nausea and pain still present but not as severe no vomiting has not passed any gas yet this morning, did pass gas last night no bowel movement has not been ambulating Physical Exam Constitutional: WD/WN, vitals as above cooperative and comfortable; no acute distress and not ill appearing Respiratory: normal respiratory effort; no respiratory distress Gastrointestinal (Abdomen): Inspection/Auscultation: abdomen normal to inspection, + abdominal surgical scar (laparoscopic scars) and + hypoactive bowel sounds; abdomen not distended and + abnormal bowel sounds Percussion/Palpation: + abdomen tender (mid upper and lower abdomen) and abdomen soft; no guarding, abdomen not rigid and abdomen not firm Skin: no rashes, warm and dry Psychiatric: A+Ox3, euthymic affect Results & Data Vital Signs (Past 12 Hours) Vital Signs Temp Pulse Resp BP Pulse Ox O2 Del Method 12/09/22 08:02 36.8 C 64 16 117/72 98 Room Air Laboratory Results 12/08/22 12/08/22 12/08/22 Range/Units 14:33 13:34 13:34 WBC 6.52 RBC 4.81 Hgb 14.4 Hct 42.8 MCV 89.0 MCH 29.9 MCHC 33.6 RDW Std Deviation 40.5 RDW Coeff of Rosey 12.5 Plt Count 213 MPV 11.3 Immature Gran % (Auto) 0.2 Neut % (Auto) 64.4 Lymph % (Auto) 28.5 Chambers % (Auto) 6.1 Eos % (Auto) 0.5 Baso % (Auto) 0.3 Neut # (Auto) 4.20 Lymph # (Auto) 1.86 Chambers # (Auto) 0.40 Eos # (Auto) 0.03 Baso # (Auto) 0.02 Immature Gran # (Auto) 0.01 Absolute Nucleated RBC Nucleated RBC % (auto) Neutrophils % (Manual) Band Neutrophils % Lymphocytes % (Manual) Prolymphocyte % Reactive Lymphs % (Man) Monocytes % (Manual) Eosinophils % (Manual) Basophils % (Manual) Metamyelocytes % (Man) Myelocytes % (Man) Promyelocytes % (Man) Blast Cells % (Manual) Plasma Cell % (Manual) Other Cells % Nucleated RBC % Neutrophils # (Manual) Band Neutrophils # Total Absolute Neuts Lymphocytes # (Manual) Prolymphocyte # Reactive Lymphs # Total Abs Lymphocytes Monocytes # (Manual) Eosinophils # (Manual) Basophils # (Manual) Metamyelocytes # (Man) Myelocytes # (Manual) Promyelocytes # (Man) Blast Cells # (Man) Plasma Cell # (Manual) Other Cells # Nucleated RBCs # (Man) Hypersegmented Neuts Hyposegmented Neuts Hypogranular Neuts Large Granular Lymphs # Lrg Granular Lymphs Hairy Cells Smudge Cells Toxic Granulation Toxic Vacuolation Dohle Bodies Kelley Rods Platelet Estimate Hypogranular Platelets Giant Platelets Platelet Satelliting RBC Morphology Polychromasia Hypochromasia Poikilocytosis Basophilic Stippling Anisocytosis Microcytosis Macrocytosis Spherocytes Pappenheimer Bodies Sickle Cells Target Cells Tear Drop Cells Ovalocytes Stomatocytes Corrales-Stronach Bodies Echinocytes Acanthocytes (Spur) Rouleaux RBC Agglutinates Schistocytes Sezary Cell Sodium 138 (136-145) mmol/L Potassium 4.1 (3.5-5.1) mmol/L Chloride 106 (98-107) mmol/L Carbon Dioxide 26 (21-32) mmol/L Anion Gap 6 (3-11) BUN 5 L (6-23) mg/dl Creatinine 0.70 (0.6-1.2) mg/dl Est Cr Clr Drug Dosing 96.6 ml/min Est GFR ( Amer) 123.0 ml/min Est GFR (Non-Af Amer) 106.1 ml/min BUN/Creatinine Ratio 7.1 L (10-20) Glucose 88 (70-99(Fasting)) mg/dl Calcium 9.8 (8.6-10.3) mg/dl Total Bilirubin 0.6 (0.2-1.0) mg/dl AST 17 (13-39) U/L ALT 16 (7-52) U/L Alkaline Phosphatase 56 (34-104) U/L Total Protein 7.6 (6.0-8.3) gm/dl Albumin 4.9 (3.4-5.0) gm/dl Globulin 2.7 (2.5-4.0) gm/dl Albumin/Globulin Ratio 1.8 (0.9-2) Lipase 20 (11-82) U/L HCG, Qual Negative (Negative) Blood Parasites ID 12/08/22 Range/Units 13:34 WBC Cancelled RBC Cancelled Hgb Cancelled Hct Cancelled MCV Cancelled MCH Cancelled MCHC Cancelled RDW Std Deviation Cancelled RDW Coeff of Rosey Cancelled Plt Count Cancelled MPV Cancelled Immature Gran % (Auto) Cancelled Neut % (Auto) Cancelled Lymph % (Auto) Cancelled Chambers % (Auto) Cancelled Eos % (Auto) Cancelled Baso % (Auto) Cancelled Neut # (Auto) Cancelled Lymph # (Auto) Cancelled Chambers # (Auto) Cancelled Eos # (Auto) Cancelled Baso # (Auto) Cancelled Immature Gran # (Auto) Cancelled Absolute Nucleated RBC Cancelled Nucleated RBC % (auto) Cancelled Neutrophils % (Manual) Cancelled Band Neutrophils % Cancelled Lymphocytes % (Manual) Cancelled Prolymphocyte % Cancelled Reactive Lymphs % (Man) Cancelled Monocytes % (Manual) Cancelled Eosinophils % (Manual) Cancelled Basophils % (Manual) Cancelled Metamyelocytes % (Man) Cancelled Myelocytes % (Man) Cancelled Promyelocytes % (Man) Cancelled Blast Cells % (Manual) Cancelled Plasma Cell % (Manual) Cancelled Other Cells % Cancelled Nucleated RBC % Cancelled Neutrophils # (Manual) Cancelled Band Neutrophils # Cancelled Total Absolute Neuts Cancelled Lymphocytes # (Manual) Cancelled Prolymphocyte # Cancelled Reactive Lymphs # Cancelled Total Abs Lymphocytes Cancelled Monocytes # (Manual) Cancelled Eosinophils # (Manual) Cancelled Basophils # (Manual) Cancelled Metamyelocytes # (Man) Cancelled Myelocytes # (Manual) Cancelled Promyelocytes # (Man) Cancelled Blast Cells # (Man) Cancelled Plasma Cell # (Manual) Cancelled Other Cells # Cancelled Nucleated RBCs # (Man) Cancelled Hypersegmented Neuts Cancelled Hyposegmented Neuts Cancelled Hypogranular Neuts Cancelled Large Granular Lymphs Cancelled # Lrg Granular Lymphs Cancelled Hairy Cells Cancelled Smudge Cells Cancelled Toxic Granulation Cancelled Toxic Vacuolation Cancelled Dohle Bodies Cancelled Kelley Rods Cancelled Platelet Estimate Cancelled Hypogranular Platelets Cancelled Giant Platelets Cancelled Platelet Satelliting Cancelled RBC Morphology Cancelled Polychromasia Cancelled Hypochromasia Cancelled Poikilocytosis Cancelled Basophilic Stippling Cancelled Anisocytosis Cancelled Microcytosis Cancelled Macrocytosis Cancelled Spherocytes Cancelled Pappenheimer Bodies Cancelled Sickle Cells Cancelled Target Cells Cancelled Tear Drop Cells Cancelled Ovalocytes Cancelled Stomatocytes Cancelled Corral[place]-Stronach Bodies Cancelled Echinocytes Cancelled Acanthocytes (Spur) Cancelled Rouleaux Cancelled RBC Agglutinates Cancelled Schistocytes Cancelled Sezary Cell Cancelled Sodium (136-145) mmol/L Potassium (3.5-5.1) mmol/L Chloride (98-107) mmol/L Carbon Dioxide (21-32) mmol/L Anion Gap (3-11) BUN (6-23) mg/dl Creatinine (0.6-1.2) mg/dl Est Cr Clr Drug Dosing ml/min Est GFR ( Amer) ml/min Est GFR (Non-Af Amer) ml/min BUN/Creatinine Ratio (10-20) Glucose (70-99(Fasting)) mg/dl Calcium (8.6-10.3) mg/dl Total Bilirubin (0.2-1.0) mg/dl AST (13-39) U/L ALT (7-52) U/L Alkaline Phosphatase (34-104) U/L Total Protein (6.0-8.3) gm/dl Albumin (3.4-5.0) gm/dl Globulin (2.5-4.0) gm/dl Albumin/Globulin Ratio (0.9-2) Lipase (11-82) U/L HCG, Qual (Negative) Blood Parasites ID Cancelled
--- NOTE | 2022-12-09 22:22 | Hospitalist Progress Note ---
Date of Service December 09, 2022 Assessment & Plan (1) SBO (small bowel obstruction): Plan: Patient initially treated NPO. Patien tnow on clear liquids as she is passing gas. She has no BM Ondansetron for nausea Acetaminophen 1st line, morphine 2nd line for pain Consult surgery: appreciate input. Plan VTE Prophylaxis - low risk Disposition - admit to med/surg Admission and Anticipated Discharge Date Admission Date: December 08, 2022 Subjective 42 yo female reports feeling well. She reports to be passing gas. Review of Systems Review of Systems: All systems reviewed & are unremarkable except as noted in HPI & below Physical Exam Constitutional: WD/WN, vitals as above Eyes: PERRL, conjunctivae normal, anicteric sclerae ENMT: external ear and nose normal, oropharynx normal Respiratory: normal respiratory effort, lungs clear to auscultation Cardiovascular: RRR, no murmur, no edema Gastrointestinal (Abdomen): bowel sounds +: hypoactive soft, non tender Psychiatric: A+Ox3, euthymic affect Results & Data Results & Data Vital Signs (Past 12 Hours) Vital Signs Temp Pulse Resp BP Pulse Ox O2 Del Method 12/09/22 14:36 36.9 C 81 16 114/71 99 Room Air PG Care Time/CCT Total # of Minutes Spent Total Time Spent with Patient: Total time spent is greater than 50% in coordination of care (as documented) at patient's floor/unit and/or counseling patient: Coding Level of Care Code 88134 SUB INP/OBS CARE 2/35MIN Diagnoses SBO (small bowel obstruction) K56.609
--- NOTE | 2022-12-10 06:22 | Surgery Progress Note ---
Date of Service December 10, 2022 Assessment & Plan (1) SBO (small bowel obstruction): Plan: Patient is presently admitted on the hospitalist service. We recommend continuing care as follows: Provide analgesics as needed Provide antiemetics as needed Continue IV fluids until oral intake is adequate As patient has had return of bowel function consideration be given to advancing her diet slowly Encourage ambulation Admission and Anticipated Discharge Date Admission Date: December 08, 2022 Supervising Physician Co-Signing Physician Notes Patient seen and examined, labs reviewed, agree with above. Admitted with SBO, she has been passing flatus and had a small bowel movement. She tolerated clear liquids. On exam she is afebrile with stable vitals, her abdomen is soft, nontender, nondistended. Will advance to full liquids and then she may advance to low fiber as tolerated. Subjective Patient is resting comfortably in bed. At the present time she denies any abdominal pain. Overnight she has been passing flatus and has had a small bowel movement. She denies any nausea or vomiting and is tolerating clear liquids. Physical Exam Gastrointestinal (Abdomen): Bowel sounds are present. Abdomen is soft, nonrigid, and nondistended. There is no pain with palpation. Results & Data Vital Signs (Past 12 Hours) Vital Signs Temp Pulse Resp BP Pulse Ox O2 Del Method 12/09/22 22:52 36.8 C 73 14 139/84 98 Room Air PG Care Time/CCT Total # of Minutes Spent Total Time Spent with Patient: Total time spent is greater than 50% in coordination of care (as documented) at patient's floor/unit and/or counseling patient: Coding Level of Care Code 71478 SUB INP/OBS CARE 06/08MIN Diagnoses SBO (small bowel obstruction) K56.609
[2022-12-10] MEDS: LACTATED RINGER'S 1,000 ML IV SCH (07:00)
[2022-12-10 10:15] LABS: Hematocrit (blood only) 38.4 % (37.0-47.0); Hemoglobin 13.3 g/dl (12.0-16.0); Mean Corpuscular Hemoglobin 29.9 pg (25.0-34.0); Mean Corpuscular Hgb Conc 34.6 g/dL (32.0-36.0); Mean Corpuscular Volume 86.3 fL (80.0-100.0); Mean Platelet Volume 11.3 fL (9.4-12.4); Platelet Count 193 K/uL (130-400); RDW Coefficient of Variation 12.1 % (11.5-14.5); RDW Standard Deviation 38.5 fL (36.4-46.3); Red Blood Count 4.45 M/uL (4.20-5.40); White Blood Count 4.61 K/ul (4.8-10.8)
[2022-12-10 10:34] LABS: BUN Creatinine Ratio 8.1 (10-20); Calcium 9.1 mg/dl (8.6-10.3); Creatinine Clr Calc Pharmacy 90.2 ml/min; Est GFR (Non-African American) 99.2 ml/min; Potassium 3.7 mmol/L (3.5-5.1)
--- NOTE | 2022-12-10 13:59 | Discharge Summary ---
Date of Service December 10, 2022 Admission HPI Per Admitting Provider Shayy Fernandez is a 42 year old female who presents to the ER with abdominal pain and nausea. Initial symptom of nausea started 2 days ago with nausea, however she was able to eat and drink normally throughout the day. Last night however she kept waking up with progressively worsening waves of pain. Severity at worst 7/10. Each wave lasting for around 5 minutes. Characteristic as dull ache. She had a normal bowel movement this morning without melena or hematochezia. No prior episodes of small bowel obstruction although she had an exporative laparoscopy aged 18 for possible endometriosis but only adhesions were seen. Principal Diagnosis small bowel obstruction Discharge Exam Constitutional WD/WN, vitals as above Eyes PERRL, conjunctivae normal, anicteric sclerae ENMT external ear and nose normal, oropharynx normal Respiratory normal respiratory effort, lungs clear to auscultation Cardiovascular RRR, no murmur, no edema Psychiatric A+Ox3, euthymic affect Discharge Data Allergies Allergy/AdvReac Type Severity Reaction Status Date / Time tramadol Allergy Severe SHORTNESS Verified 12/08/22 16:07 OF BREATH Consultations 12/08/22 14:36 ED Decision to Admit Stat 12/08/22 17:09 Consult General Surgery Routine Hospital Course (1) SBO (small bowel obstruction): May be due to adhesions from previous laparoscopic surgery, patient did have adhesions found during that procedure when she was 18. Patient initially treated NPO. Diet was slowly advanced and patient is now on a low fiber diet. Patient is passing gas and had a small bowel movement. Patient improved and did not require narcotics thankfully. Ondansetron for nausea Consult surgery: appreciate input. Will recommend a followup with Gastroenterology for a colonoscopy, though likely low yield as patient had small bowel obstruction. Patient prefer [facility]. Patient will remain on a low fiber diet. Plan VTE Prophylaxis - low risk Disposition - admit to med/surg Total Time Total Time Spent Total Time Spent (In Minutes): 35 Discharge Plan Discharge Items Patient Disposition: Home - Self-Care Reason For Visit: SMALL BOWEL OBSTRUCTION Discharge Diagnosis: small bowel obstruction Activity: Resume your previous activity Non-emergency contact: Primary Care Provider Call non-emergency contact if: you have any medication questions Follow-up/Referrals: Carmen Miller DO [Primary Care Provider] - Diet: Low Fiber Addtl Attending Provider Instructions: Recommend followup with [facility] for colonoscopy Recommend followup with PCP in 1-2 weeks. A low fiber diet is typically recommended for individuals with certain medical conditions or as a temporary measure to relieve digestive symptoms. Here is some basic information about a low fiber diet: 1. Purpose: A low fiber diet limits the intake of foods high in dietary fiber to reduce the workload on the digestive system and ease symptoms like diarrhea, abdominal pain, or cramping. 2. Foods to limit or avoid: - Whole grains (e.g., whole wheat, whole oats, brown rice) - Legumes (e.g., lentils, beans, chickpeas) - Nuts and seeds - Raw fruits and vegetables (except for some cooked or peeled options) - High-fiber cereals or breads 3. Foods generally allowed: - Refined grains (e.g., white bread, white rice, refined cereals) - Cooked and peeled fruits and vegetables (e.g., applesauce, canned fruits, cooked carrots) - Lean meats, poultry, and fish - Dairy products (unless lactose intolerant) - Eggs 4. Cooking and preparation methods: - Choose peeled or cooked fruits and vegetables instead of raw ones. - Remove seeds and skin from fruits and vegetables. - Opt for refined grain products instead of whole grains. - Cook or soak legumes to reduce their fiber content. It's important to note that a low fiber diet should only be followed under the guidance of a healthcare professional, as it is not suitable for long-term use. They can provide personalized recommendations based on your specific needs and condition. Please continue a low fiber diet until cleared by PCP. Pending Studies at Discharge: No Stand-Alone Forms: My [facility], Smoking Cessation Medications and DC Order Prescriptions: Continued norethindrone (contraceptive) [Bina] 0.35 mg tablet 0.35 mg PO DAILY Qty: 28 7RF Rx Instructions: Did not start yet. levonorgestrel 20 mcg/24 hours (5 yrs) 52 mg intrauterine device 20 mcg IU DAILY sumatriptan succinate [Imitrex] 50 mg Tablet 0 mg PO .COMPLEX Rx Instructions: take 1 tab at onset of headache; if no relief may repeat 1 tab after at least 2 hrs; max = 4 tabs/24 hr fluticasone propionate 50 mcg/actuation spray,suspension 2 spray INTRANASAL BID PRN (Reason: Nasal Congestion) Discharge Orders: Discharge Order (Routine); Ordered 12/10/22 Ordered By: Beto Davis/Other Patient Handouts: Small Bowel Obstruction, Low-Fiber Diet Admission Data Admit Date/Time: 12/08/22 15:47 Attending Provider: Beto Arias Admit Provider: Alejandro Patel Primary Care Provider: Carmen Miller Other Providers: Alejandro Patel ; Licha Jay Other Interventions: Discharge Summary Assessment (RN) Last Done: 12/10/22 15:20 Coding Level of Care Code 81392 INP/OBS DISCH >30 MIN Diagnoses SBO (small bowel obstruction) K56.609
== END 2022-12-10 18:48 | disposition home or self-care (01) | DRG 390 ==
LOC: ED 12:00 → EDINP 15:47 → SUATTDRO 15:47 → 3E 17:04